=== PATIENT | male | born 1940 | race Caucasian/White ===

== ENCOUNTER 2016-10-22 07:16 | Outpatient (CLI) | payer MEDICARE ==
[~2016-10-22] VITALS: Ht 180.3 cm; Wt 106.8 kg
--- NOTE | ~2016-10-22 | HEMODYNAMI ---
PATIENT:OCTAVIO LOBATO MEDICAL RECORD: [id number] : 42 LOCATION:[facility] ADMISSION DATE: 10/22/16 Generatedon:10/22/201611:46 Patient name: OCTAVIO LOBATO Patient #: [id number] SSN: : 1940 Date of study: 10/22/2016 Page: Of Hemodynamic Procedure Report Patient Data Patient Demographics Procedure consent was obtained First Name: OCTAVIO Gender: Male Last Name: LUIS ALFREDO : 1940 [facility] Initial: CANDIDA Age: 76 year(s) Patient #: [id number] Race: Additional ID: [id number] Contact details [address]: [address] [place] [address] State: [place] City: [place] Zip code: [address] Past Medical History History of disease Date Diagnosis Comments CAD Allergies: No known allergies Admission Admission Data Admission Date: 10/22/2016 Admission Time: 7:16 Height (in.): 71 BSA: 2.26 (m2) Height (cm.): 180.34 BMI: 32.78 (kg/m2) Weight (lbs.): 235 Weight (kg.): 106.59 Lab Results Lab Result Date: 10/22/2016 Lab Result Time: 0:00 Biochemistry Name Units Result Min Max BUN mg/dl 51 --(----)-* 7 18 Creatinine mg/dl 3.4 --(----)-* 0.6 1.3 CBC Name Units Result Min Max Hemoglobin g/dl 14.6 --(-*--)-- 13.5 17.5 Procedure Procedure Types Cath Procedure Diagnostic Procedure [facility] w/Coronaries Bravo Insertion PCI Procedure Coronary Stent Initial Miscellaneous Procedures Moderate Sedation up to 15 minutes Procedure Description Procedure Date Procedure Date: 10/22/2016 Procedure Start Time: 11:27 Procedure End Time: 11:45 Procedure Staff Name Function Feng Iniguez MD Performing Physician Brigette Ohara RN Nurse Sorin Hoyt RT Monitor Bryan Anne RT Scrub Forest Villavicencio RN Agriculture Intern Procedure Data Cath Procedure Fluoroscopy Diagnostic fluoroscopy Total fluoroscopy Time: 1.8 time: 1.8 min min Diagnostic fluoroscopy Total fluoroscopy dose: 586 dose: 586 mGy mGy Contrast Material Contrast Material Type Amount (ml) Isovue 300 36 Entry Location Entry Primary Successful Side Size Upsize Upsize Entry Closure Succes sful Closure Location (Fr) 1 (Fr) 2 (Fr) Remarks Device Remarks Femoral Right 6 Fr Exoseal artery Short Diagnostic catheters Device Type Used For End Catheter Placement Diagnostic Infinity 5Fr LV Angiography Pigtail catheter Procedure Complications No complications Procedure Medications Medication Administration Route Dosage Oxygen NC 2 l/min Heparin Flush Bag added to field 2 bags (1000units/500ml NS) Lidocaine 2% added to field 20 Plavix P.O. 75 mg Versed I.V. 1 mg Fentanyl I.V. 50 mcg Versed I.V. 1 mg Fentanyl I.V. 50 mcg Heparin Bolus I.V. 4000 units Fentanyl I.V. 25 mcg Hemodynamics Rest BSA: 2.26 (m2) HGB: 14.6 (g/dl) O2 Consumption: Estimated: 247.07 (ml/min) O2 Co nsumption indexed: Estimated:109.32 (ml/min/m) Heart Rate: 55 (bpm) Snapshots Pre Cath Intra NCS Post Cath Vital Signs Time Heart Resp SPO2 NIBP (mmHg) Rhythm Pain Sedation Rate (ipm) (%) Status Level (bpm) 11:14:03 60 22 98 173/81(140) NSR 0 (11) 10(A) , No pain 11:18:25 65 16 99 161/82(136) NSR 0 (11) 10(A) , No pain 11:22:49 60 16 98 142/78(112) NSR 0 (11) 10(A) , No pain 11:27:09 60 19 96 129/79(109) NSR 0 (11) 10(A) , No pain 11:31:25 62 18 96 144/74(114) NSR 0 (11) 9(A) , No pain 11:35:45 61 16 96 141/83(112) NSR 0 (11) 9(A) , No pain 11:38:17 60 17 96 137/82(100) NSR 0 (11) 9(A) , No pain Medications Time Medication Route Dose Verified Delivered Reason Notes Effectiveness by by 11:08:05 Plavix P.O. 75 mg Feng Brigette for Geetha Ohara RN antiplatelet therapy 11:15:34 Oxygen NC 2 Feng Brigette Per physician l/min Geetha Ohara RN 11:15:42 Heparin Flush added 2 Feng Feng used for Bag to bags Geetha Iniguez MD procedure (1000units/500ml field NS) 11:15:49 Lidocaine 2% added 20ml Feng Feng used for to vial Geetha Iniguez MD procedure field 11:23:45 Versed I.V. 1 mg Feng Brigette for sedation Geetha Ohara RN 11:24:04 Fentanyl I.V. 50 Feng Brigette for sedation mcg Geetha Ohara RN 11:26:03 Versed I.V. 1 mg Feng Brigette for sedation Geetha Ohara RN 11:26:09 Fentanyl I.V. 50 Feng Brigette for sedation mcg Geetha Ohara RN 11:29:29 Heparin Bolus I.V. 4000 Feng Brigette for dose units Geetha Ohara RN anticoagulation verified wt dr iniguez 11:29:37 Fentanyl I.V. 25 Feng Brigette for sedation mcg Geetha Ohara RN Procedure Log Time Note 10:50:32 Forest Villavicencio RN sent for patient. Start room use. 11:04:06 Procedure type changed to Cath procedure, Diagnostic procedure, LHC, LHC w/Coronaries, Bravo Insertion, PCI procedure, Coronary Stent Initial, Miscellaneous Procedures, Moderate Sedation up to 15 minutes 11:04:42 Time tracking: Regular hours 11:04:46 Plan of Care:Hemodynamics will remain stable., Cardiac rhythm will remain stable., Comfort level will be maintained., Respiratory function will remain adequate., Patient/ family verbilizes understanding of procedure., Procedure tolerated without complication., Recovers from procedure without complications.. 11:07:04 Patient received from Pre/Post Procedure Room to CCL 2 Alert and oriented. Tansferred to table in Supine position. 11:07:09 Warm blankets applied, and nella hugger turned on for patient comfort. 11:07:09 Correct patient and procedure confirmed by team. 11:07:10 Signed procedure consent form obtained from patient. 11:07:11 ECG and BP/O2 sat monitors applied to patient. 11:08:05 Plavix 75 mg P.O. was administered by Brigette Ohara RN; for antiplatelet therapy; 11:12:37 Vital chart was started 11:15:34 Oxygen 2 l/min NC was administered by Brigette Ohara RN; Per physician; 11:15:42 Heparin Flush Bag (1000units/500ml NS) 2 bags added to field was administered by Feng Iniguez MD; used for procedure; 11:15:49 Lidocaine 2% 20ml vial added to field was administered by Feng Iniguez MD; used for procedure; 11:16:17 Baseline sample Acquired. 11:16:23 Rhythm: sinus rhythm 11:16:24 Full Disclosure recording started 11:18:01 H&P Date Dictated: 10/09/2016 Within 30 days and on chart., H&P Addendum completed by physician on day of procedure. (MUST COMPLETE FOR ALL OUTPATIENTS). 11:18:04 Pre-procedure instructions explained to patient. 11:18:04 Pre-op teaching completed and patient verbalized understanding. 11:18:08 Family in waiting room. 11:18:09 Patient NPO since Midnight. 11:18:16 Patient allergic to No known allergies 11:18:21 Is the patient allergic to Iodine/contrast media? No. 11:19:31 Is patient on blood thinner?Yes 11:19:34 ACC The patient was administered the following blood thiners within the last 24 hours: ACCPlavix 11:19:43 Patient diabetic? Yes. 11:19:45 If diabetic: On Metformin? No 11:19:46 ----Pre-sedation anethsthesia assessment.---- 11:19:49 Previous problem with sedation/anesthesia? No ? 11:19:51 Snore? Yes 11:19:52 Sleep apnea? No 11:19:54 Deviated septum? No 11:19:55 Opens mouth fully? Yes 11:19:56 Sticks out tongue? Yes 11:19:58 Airway obstruction? No ? 11:20:01 Dentures? No ? 11:20:06 Pre procedure: right dorsailis pedis pulse 1+ Palpable, but thready & weak; easily obliterated 11:20:10 Patient pain scale 0/10 ?. 11:20:16 IV patent on arrival in left hand with 0.9% NaCl at 10ml/hr. 11:20:49 Lab Result : BUN 51 mg/dl 11:20:49 Lab Result : Hemoglobin 14.6 g/dl 11:20:49 Lab Result : Creatinine 3.4 mg/dl 11:20:52 Lab results completed and on chart. 11:20:55 Right groin area was prepped with chlora-prep and draped in sterile fashion 11:20:56 Alarms reviewed by R. N. 11:20:56 Sharps counted by scrub and verified by R.N. 11:23:23 --------ALL STOP TIME OUT------ 11:23:24 Final Timeout: patient, procedure, and site verified with staff and physician. All members of the team are in agreement. 11:23:25 Right groin site verified by team. 11:23:28 Physical assessment completed. ASA score P 2 - A patient with mild systemic disease as per Feng Iniguez MD. 11:23:32 Sedation plan: IV Moderate Sedation Versed, Fentanyl 11:23:45 Versed 1 mg I.V. was administered by Brigette Ohara RN; for sedation; 11:24:04 Fentanyl 50 mcg I.V. was administered by Brigette Ohara RN; for sedation; 11:26:03 Versed 1 mg I.V. was administered by Brigette Ohara RN; for sedation; 11:26:09 Fentanyl 50 mcg I.V. was administered by Brigette Ohara RN; for sedation; 11:26:29 Use device set Femoral Dx 11:26:30 Acist Syringe opened to sterile field. 11:26:30 Bag Decanter opened to sterile field. 11:26:32 Medline Cath Pack opened to sterile field. 11:26:33 St Curt 260cm J .035 wire opened to sterile field. 11:26:35 Acist Hand Control opened to sterile field. 11:26:35 Acist Manifold opened to sterile field. 11:26:36 Tegaderm 4 x 4 opened to sterile field. 11:26:56 Medtronic Launcher 6Fr EBU 4.0 guide catheter opened to sterile field. 11:27:02 Procedure started. 11:27:08 Local anesthetic to right femoral artery with Lidocaine 2% by Feng Iniguez MD.INITIAL ACCESS ONLY 11:27:19 A 6 Fr Short sheath was inserted into the Right Femoral artery 11::37 A Diagnostic Infinity 5Fr Pigtail catheter was advanced over the wire and used for LV Angiography. 11:27:40 LV angiography performed. 11:27:45 EF : 40 % 11::49 Injector settings: Ml/sec: 3, Volume: 6, 11:27:50 Catheter removed. 11:28:23 6 Fr EBU 4 guide catheter was inserted over the wire 11:28:29 LCA angiography performed. 11:28:43 [place] [employer] Choice PT Extra Support J 300cm .014 gu opened to sterile field. 11:28:44 Merit BasixCompak Inflation Kit opened to sterile field. 11:28:58 Terumo 6Fr Clarion Sheath opened to sterile field. 11:29:29 Heparin Bolus 4000 units I.V. was administered by Brigette Ohara RN; for anticoagulation; dose verified wtih dr iniguez 11::37 Fentanyl 25 mcg I.V. was administered by Brigette Ohara RN; for sedation; 11:29:43 ACC PCI Site: [facility] has 80% stenosis. 11:29:45 ACC Pre-intervention [place] Flow is 3. 11:29:49 CPTES wire advanced. 11:31:44 Patient Weight : 106.59 kg 11:31:48 Patient Height : 180.34 cm 11:32:17 Inflation number: 1 A Mozec Rx 2.5 x 14 balloon was prepped and advanced across the Mid CX, then inflated to 13 WENDY for 0:10 (min:sec). 11:32:27 Balloon removed over the wire. 11:33:13 Cordis 6Fr Exoseal opened to sterile field. 11:33:28 Terumo 5Fr Clarion Sheath opened to sterile field. 11:34:49 Inflation Number: 2 A [place] OTW 2.5 x 12 stent was prepped and advanced across the Mid CX. The stent was deployed at 13 WENDY for 0:14 (min:sec). 11:34:52 Stent catheter was removed intact over wire. 11:34:53 Wire removed. 11:34:53 Guide catheter removed. 11:35:20 Sheath removed intact; hemostasis achieved with Exoseal to the Right Femoral artery. 11:35:48 16FR Bravo w/Drainage Bag opened to sterile field. 11:36:45 BRAVO INSERTION UNDER CONFIGURATION CONSULTANT SECONDARY TO URINARY RETENTION AND AN ENLARGED PROSTATE bravo placed eaysil, no complications. pt urine in clear yellow drainnig freely into collection bag. secrued with bravo leg securing device. 11:36:51 Procedure ended.(Physican Out) 11:37:00 Fluoroscopy time 01.80 minutes. 11:37:05 Fluoroscopy dose: 586 mGy 11:37:05 Flurop Dose total: 586 11:37:15 Contrast amount:Isovue 300 36ml. 11:37:17 Sharps counted by scrub and verified by R.N. 11:37:18 Insertion/operative site no bleeding no hematoma. 11:37:22 Post-op/insertion site Right Femoral artery dressed using a 4 x 4 and Tegaderm. 11:37:32 Post right femoral artery:stable 11:37:33 Post Procedure Pulses reassessed and unchanged 11:37:35 Post procedure: right dorsailis pedis pulse 1+ Palpable, but thready & weak; easily obliterated. 11:37:38 Post procedure rhythm: sinus rhythm 11:37:40 Post procedure instruction explained to patient.Patient verbalizes understanding. 11:39:02 Procedure and supply charges have been captured, reviewed, submitted and are correct. 11:39:55 Procedure Complication : No complications 11:42:09 Vital chart was stopped 11:45:26 See physician's report for complete and final results. 11:45:30 Report given to Pre/Post Procedure Room. 11:45:32 Patient transfered to Pre/Post Procedure Room with Stretcher. 11:45:36 Procedure ended. 11:45:36 Full Disclosure recording stopped 11:45:40 End room use (Document Last) Intervention Summary Intervention Notes Time ActionType Lesion and Equipment Action# Pressure Duration Attributes Used 11:32:17 Inflate Mid CX Mozec Rx 1 13 00:10 balloon 2.5 x 14 balloon 11:34:49 Place stent Mid CX [place] OTW 2 13 00:14 2.5 x 12 stent Device Usage Item Name Manufacture Quantity Catalog Number Hospital Part Current Minim al Lot# / Charge Number Stock Stock Serial# Code Acist Acist 1 14369 004697 680890 122132 20 Syringe Medical Systems Inc Bag Microtek 1 2002S 394018 31803 508671 5 Decanter Medical Inc. Medline Cardinal 1 [id number] 085332 30758 156[address] Curt 1 600236 783547 719775 157306 30 260cm J .035 wire Acist Hand Acist 1 25990 361816 277732 218727 5 Control Medical Systems Inc Acist Acist 1 35425 566369 147440 019324 5 Manifold Medical Systems Inc Tegaderm 4 3M 1 1626W 585953 796646 113409 5 x 4 Medtronic Medtronic 1 [id number] 557771 33776 376995 1 Launcher 6Fr EBU 4.0 guide catheter Diagnostic Cardinal 1 [id number] 527166 608477 166317 5 ITC Global Health 5Fr Pigtail catheter [place] Sci [place] 1 [id number] 701214 583650 978274 5 Choice PT Scientific Extra Support J 300cm .014 gu Merit Merit 1 CV8867 778354 833649 544040 15 BasixCompak Medical Inflation Kit Terumo 6Fr Terumo 1 IWM845 884078 004842 759716 40 Clarion Sheath Mozec Rx Cardinal 1 [id number] 598121 58334 788873 5 UMOA36 2.5 x 14 Health balloon Cordis 6Fr Cardinal 1 EX600 373357 499555 509882 10 Exoseal Health Terumo 5Fr Terumo 1 NPQ846 210783 366000 515401 40 Clarion Sheath [place] OTW Medtronic 1 [id number] 646294 72366 415781 5 [id number] 2.5 x 12 stent 16FR Bravo Bard 1 [id number] 898602 591532 755770 5 w/Drainage Bag Signature Audit [place] Stage Time Signature Unsigned Intra-Procedure 10/22/2016 Sorin Hoyt 11:46:01 AM RT(R) Signatures Monitor : Sorin Hoyt RT Signature : Date : Time : [facility] [address] [place] [address]
[~2016-10-22 07:16] MED LIST: BAYER CHEWABLE81 MG PO; COREG CR40 MG PO; GLIPIZIDE-METFO1 TA5 PO; ISOSORBIDE MONO60 M1 PO; LANTUS SOL100 UNIT/1; LASIX40 MG PO; LOTREL 10/20 CA1 CAP PO; PLAVIX75 MG PO; RANEXA500 MG PO; SYNTHROID100 MCG PO; TRADJENTA5 MG PO; TRICOR145 MG PO; VYTORIN 10-40 M1 TAB PO
[2016-10-22 08:00] LABS: BASOPHILS 0.4 % (0-2); EOSINOPHILS 1.6 % (0-7); HEMATOCRIT 43.4 % (42.0-54.0); HEMOGLOBIN 14.6 g/dL (13.5-17.5); IMMATURE GRANULOCYTES 0.2 % (0-5); LYMPHOCYTES 22.5 % (15-50); MCH 30.8 pg (26.0-34.0); MCHC 33.6 g/dL (31.0-37.0); MCV 91.6 fL (80.0-100.0); MEAN PLATELET VOLUME 11.6 fL (7.4-10.4); MONOCYTES 11.2 % (2-11); NEUTROPHILS 64.1 % (40-80); PLATELET COUNT 141 10x3/uL (130-400); RBC 4.74 10x6/uL (4.20-6.10); RDW 13.5 % (11.5-14.5); WBC 5.5 10x3/uL (4.8-10.8)
[2016-10-22 08:12] VITALS: BP 157/79; Ht 180.3 cm; Wt 106.8 kg
[2016-10-22 08:30] LABS: CALC OSMOLALITY 293 mosm/kg (275-300); CARBON DIOXIDE 22.4 mmol/L (21.0-32.0); CHLORIDE - SERUM 106 mmol/L (98-107); CKMB 2.8 U/L (0.0-3.6); CREATINE KINASE 230 UL (21-232); CREATININE - SERUM 3.4 mg/dL (0.6-1.3); GLUCOSE 120 mg/dL (74-106); POTASSIUM - SERUM 5.3 mmol/L (3.5-5.1); SODIUM 140 mmol/L (136-145); TROPONIN-I < 0.017 ng/mL (0.000-0.060); UREA NITROGEN 51 mg/dL (7-18); eGFR NON AFRICAN AMERICAN 19 mL/min (90-120)
--- NOTE | 2016-10-22 12:02 | NUR ---
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 PT IS DROWSY, AWAKENS TO VERBAL STIMULI. DENIES ANY C/O AT THIS TIME. DRESSING TO RIGHT GROIN IS CDI, NO BLEEDING OR HEMATOMA NOTED. PEDAL PULSES PALPABLE. RR IS EVEN AND UNLABORED ON O2 AT 2 LPM VIA NC. FAMILY AT BEDSIDE, CALL LIGHT IN REACH.
--- NOTE | 2016-10-22 12:05 | NUR ---
RIGHT GROIN CDI, NO HEMATOMA OR BLEEDING NOTED AT SITE, FAMILY AT SIDE.
--- NOTE | 2016-10-22 12:30 | NUR ---
NO CHANGE IN RIGHT GROIN, FAMILY AT SIDE
--- NOTE | 2016-10-22 15:10 | NUR ---
IV D'C WITH CATH TIP INTACT, BRAVO CATH D'C WITH TIP INTACT, WRITTEN AND VERBAL INSTRUCTIONS GIVEN TO PT AND FAMILY.
--- NOTE | 2016-10-24 11:01 | OP ---
PATIENT NAME: OCTAVIO LOBATO MEDICAL RECORD: [id number] :42 LOCATION:[facility] ADMISSION DATE: SURGEON: ORLY GARCIA MD OPERATION DATE: 10/22/16 PROCEDURES: 1. Percutaneous transluminal coronary angioplasty stent left circumflex. 2. Left heart catheterization. 3. Selective coronary angiography. 4. Left ventriculogram. INDICATION: 1. Angina. 2. Coronary artery disease. PROCEDURE IN DETAIL: After informed consent was obtained and after detailed explanation of risks, benefits, as well as alternative therapies, the patient elected to proceed with angiogram and angioplasty. The right femoral area was prepped and draped in a normal sterile fashion. The right femoral artery was cannulated via modified Seldinger technique with placement of 6-Romanian sheath. All catheters exchanged through this sheath. FINDINGS: Left ventriculogram was performed in standard 30 degree HILLIARD view, reveals mild global hypokinesis, ejection fraction 40%. SELECTIVE CORONARY ANGIOGRAPHY: 1. Left main is with no significant angiographic disease. 2. Left anterior descending has previously placed stent in the left anterior descending diagonal that is widely patent. The mid left anterior descending has an 80+% stenosis, however, the distal left anterior descending is grafted via a patent left internal mammary artery. 3. The left circumflex has a previously placed stent in the first obtuse marginal with 80% in-stent restenosis. The graft to this vessel is closed. 4. From previous cardiac catheterization, right coronary artery and right coronary artery graft are closed. PTCA STENT OF THE LEFT CIRCUMFLEX: The stent used in the obtuse marginal was a 2.5 X 12 millimeter Resolute Garth. The result was 0% residual stenosis. OVERALL IMPRESSION: Successful percutaneous transluminal coronary angioplasty stent of the left circumflex going from 80% initial stenosis to 0% residual stenosis. ORLY GARCIA MD at 1101 CC: [id number] DICTATION DATE: 10/22/16 1400 PUBLIC WORKS INSPECTOR: DM 10/22/16 1549 DEP CLI 10/22/[address] [address]
== END 2016-10-22 15:30 | disposition home or self-care (01) ==
LOC: D.CATH 07:16
PROVIDERS: Internal Medicine Interventional Cardiology
DX: I25.119 Atherosclerotic heart disease of native coronary artery with unspecified angina pectoris (principal); T82.855A Stenosis of coronary artery stent, initial encounter; Z01.812 Encounter for preprocedural laboratory examination
CPT/HCPCS: 93459; C9600

== ENCOUNTER 2018-08-23 07:19 | Observation (INO) | payer MEDICARE ==
[~2018-08-23] VITALS: Ht 180.3 cm; Wt 112.7 kg
[2018-08-23] VITALS (18 sets, daily range): BP systolic 135–180; BP diastolic 71–101; Ht 180.3 cm; Wt 112.7 kg
--- NOTE | ~2018-08-23 | OP ---
PATIENT NAME: OCTAVIO LOBATO MEDICAL RECORD: [id number] :42 [facility]ATION:[facility] ADMISSION DATE:08/23/18 SURGEON: DAVID REYNOLDS MD DATE OF OPERATION: 08/23/2018 SURGEON: David Reynolds MD ANESTHESIA: General, Dr. Ny. OPERATION PERFORMED: Insertion of dual chamber pacing system. PREOPERATIVE DIAGNOSES: Sick sinus syndrome, profound bradycardia, second-degree heart block. POSTOPERATIVE DIAGNOSES: Sick sinus syndrome, profound bradycardia, second-degree heart block. INDICATION FOR OPERATION: Profound symptomatic bradycardia. FINDINGS OF THE OPERATION: The pacemaker Medtronic model number A2DR01, serial number [id number]. Atrial lead: Medtronic model number 4574-45, serial number [id number]. Ventricular lead: Medtronic model number 4074-58, serial number [id number]. LEAD ANALYSIS: Atrial lead: Threshold 0.4 volts, cardiac threshold 640 ohms. P-wave 3.9. Ventricular lead: Threshold 1.0, impedance 1240, R-wave 3.1. Measured through the device, the right atrium P-wave 3.1 and right ventricle 8.0. ESTIMATED BLOOD LOSS: Less than 5 cc. DESCRIPTION OF PROCEDURE: After informed consent and adequate preoperative medication evaluation, the patient was brought to the operating room, placed on the table in the supine position. After induction of general endotracheal anesthesia and application of appropriate monitoring devices, the left chest and neck were prepped and draped in sterile field, utilizing Betadine scrub, alcohol, and Betadine solution. A Betadine-impregnated drape was also used, 1% lidocaine was infiltrated in the left subclavicular space. Incision was made. Dissection carried down to the fascia. Hemostasis maintained with electrocautery. A pacemaker pocket was formed. Subclavian vein was cannulated with the introducers, the leads were placed in the heart. The above electrophysiologic study was done. Leads were felt to be in good position. The leads were secured. The leads were then connected to pulse generator and pacemaker placed in the pocket. Pacemaker fired, captured and sensed appropriately. Pocket was irrigated. Instrument count and sponge count were correct times 2. Pocket was closed in layers utilizing 3-0 Vicryl on deep subcutaneous tissue, 5-0 subcuticular Monocryl on the skin. Sterile dressings were applied. The patient tolerated the procedure well and was transferred to the CV ICU in satisfactory condition. TRANSINT:[id number] Voice Confirmation ID: [id number] DOCUMENT ID: [id number] OPERATIVE REPORT [id number] OCTAVIO LOBATO EDWARD MD CC: [id number] DICTATION DATE: 08/23/18 1130 INFECTION CONTROL MANAGER: 08/23/18 1210 [place] [address]
[2018-08-23 07:54] LABS: ANION GAP 9.5 mmol/L (8-16); CALCIUM 9.3 mg/dL (8.5-10.1); CARBON DIOXIDE 27.4 mmol/L (21.0-32.0); CREATININE - SERUM 2.6 mg/dL (0.6-1.3); POTASSIUM - SERUM 4.9 mmol/L (3.5-5.1)
[2018-08-23 07:56] LABS: HEMATOCRIT 43.6 % (42.0-54.0); HEMOGLOBIN 14.9 g/dL (13.5-17.5); MCH 30.7 pg (26.0-34.0); MCHC 34.2 g/dL (31.0-37.0); MCV 89.9 fL (80.0-100.0); MEAN PLATELET VOLUME 11.5 fL (7.4-10.4); RBC 4.85 10x6/uL (4.20-6.10); RDW 13.9 % (11.5-14.5)
[2018-08-23 08:07] LABS: APTT 25.3 SECONDS (22.8-39.4); INR 1.06 (0.85-1.17); PROTIME 13.3 SECONDS (11.6-15.0)
[2018-08-23] MEDS ORDERED: PLAVIX75 MG PO (08:24)
[2018-08-23] MEDS ORDERED: GLUCOTROL 5 MG T5 MG PO (08:25)
[2018-08-23] MEDS ORDERED: ULORIC40 MG PO (08:30)
[2018-08-23] MEDS ORDERED: VITAMIN D3400 UNI1 PO (08:30)
--- NOTE | 2018-08-23 13:53 | NUR ---
1230 PT ADMITTED TO THE CVICU FROM THE RECOVERY ROOM POST OP PERM PACEMAKER INSERTION.. PT IS AWAKE AND ALERT ON ARRIVAL THERE IS A SLING ON HIS LEFT ARM AND A 4X4 AQUACEL DRESSING ON HIS LEFT CHEST WALL PACEMAKER INSSERTION SITE.. PACED RYTHM NOTED ON THE ROLL CHANGER. 1300 CXR DONE ANTIBIOTICS INFUSING. FAMILY AT THE BEDSIDE [address] REYNOLDS TO VERIFY DIET AND MEDS 1345 PTS HOME MEDS ARE LOOSE PILLS IN A BOTTLE GEMA BEEPED.. LUNCH SERVED AND PT IS FEEDING SELF
--- NOTE | 2018-08-23 17:55 | NUR ---
1430 SPOKE WITH GEMA CAPPS FOR DR REYNOLDS.. RE MED ISSUE.. PT CAN HAVE FAMILY BRING MEDS FROM HOME OR HE CAN HAVE PHARMACY DISPENSE AND HE WILL BE RESPONSIBLE FOR THE COST OF THEM... 1500 SPOKE WITH PT AND DAUGHTER RE MEDS THEY WILL DECIDE 1630 PT REFUSES MEDS AT THIS TIME... DINNER SERVED AND PT IS FEEDING SELF 1700 100% DIET CONSUMED..SITTING IN CHAIR AT BEDSIDE..
--- NOTE | 2018-08-23 19:47 | NUR ---
REPORT RECEIVED, SHIFT ASSESSMENT COMPLETED PER FLOW SHEET. AAOX4. PPP. LT FOREARM PIV PATENT, DRESSING C/D/I, NO SIGNS OF INFECTION OR INFILTRATION. DAUGHTER AT BEDSIDE. PATIENT DENIES NEEDS. SEE FLOW SHEET FOR COMPLETE ASSESSMENT. WILL CONTINUE TO MONITOR.
--- NOTE | 2018-08-23 21:00 | NUR ---
DAUGHTER AT BEDSIDE. ASSISSTED TO BR, VOID X1. ASSISSTED TO CHAIR PER HIS REQUEST. DENIES OTHER NEEDS. CALL LIGHT WITHIN REACH.
--- NOTE | 2018-08-23 23:01 | NUR ---
REASSESSMENT COMPLETED PER FLOW SHEET, SEE FOR DETAILS. WATER PROVIDED. WILL CONTINUE TO MONITOR.
[2018-08-24] VITALS (10 sets, daily range): BP systolic 113–152; BP diastolic 67–85
--- NOTE | 2018-08-24 01:00 | NUR ---
RESTING, NO ACUTE DISTRESS NOTED, DENIES NEEDS. WILL CONTINUE TO MONITOR.
--- NOTE | 2018-08-24 03:05 | NUR ---
REASSESSMENT COMPLETED PER FLOW SHEET, SEE FOR DETAILS. NO ACUTE DISTRESS NOTED, DENIES NEEDS. CALL LIGHT WITHIN REACH. WILL CONTINUE TO MONITOR.
--- NOTE | 2018-08-24 05:00 | NUR ---
DENIES NEEDS AT THIS TIME, NO ACUTE DISTRESS NOTED. WILL CONTINUE TO MONITOR.
[2018-08-24 09:01] LABS: ANION GAP 14.1 mmol/L (8-16); CALCIUM 8.5 mg/dL (8.5-10.1); CARBON DIOXIDE 22.3 mmol/L (21.0-32.0); CREATININE - SERUM 2.9 mg/dL (0.6-1.3); POTASSIUM - SERUM 5.4 mmol/L (3.5-5.1)
--- NOTE | 2018-08-24 10:04 | NUR ---
0700 PT RECIEVED ALERT AND ORIENTED ON ROOM AIR HR PACED, DRESSING TO L CHEST PPM SITE, L ARM IN SLING, DENIES ANY NEEDS, SEE SHIFT ASSESSMENT FOR DETAILS 0900 ATE 100% BREAKFAST
[2018-08-24] MEDS ORDERED: HYDROCODON-ACE1 EAC7 PO (10:20)
--- NOTE | 2018-08-24 11:36 | NUR ---
[address] DC TEACHING DONE BY DR ENGLISH NURSE GEMA AND MYSELF, DENIES ALL QUESTIONS, PIV DCD, ASSISTED TO CAR WITH DAUGHTER AT 1120
== END 2018-08-24 11:20 | disposition home or self-care (01) ==
LOC: D.OPS 07:19 → D.CVICU 10:24 → D.OPS 10:51 → D.CVICU 10:52 → OBSVTIME 10:53 → D.CVICU 08-24 11:20
PROVIDERS: Thoracic Surgery (Cardiothoracic Vascular Surgery); ADMIT Internal Medicine Cardiovascular Disease; ATTEND Internal Medicine Cardiovascular Disease
DX: I49.5 Sick sinus syndrome (principal); I44.1 Atrioventricular block, second degree; R00.1 Bradycardia, unspecified; I25.10 Atherosclerotic heart disease of native coronary artery without angina pectoris; I10 Essential (primary) hypertension; E78.5 Hyperlipidemia, unspecified; E03.9 Hypothyroidism, unspecified

== ENCOUNTER → 2018-09-01 10:35 | Outpatient (CLI) | payer MEDICARE ==
[2018-08-23 12:46] VITALS: BMI 34.6
[~2018-09-01 10:35] MED LIST changes: +GLUCOTROL 5 MG T5 MG PO; +HYDROCODON-ACE1 EAC7 PO; +ULORIC40 MG PO; +VITAMIN D3400 UNI1 PO
== END | disposition home or self-care (01) ==
LOC: D.US 10:35
PROVIDERS: ATTEND Internal Medicine Cardiovascular Disease
DX: R22.32 Localized swelling, mass and lump, left upper limb (principal)

== ENCOUNTER → 2019-04-14 09:47 | Outpatient (CLI) | payer MEDICARE ==
[2018-08-23 12:46] VITALS: BMI 34.6
--- NOTE | 2019-04-18 11:13 | ST ---
PATIENT:OCTAVIO LOBATO MEDICAL RECORD: [id number] SEX: M LOCATION:[facility] ORDER #: ADMISSION DATE: 04/14/19 AGE OF PATIENT: 79 REFERRING PHYSICIAN: INTERPRETING PHYSICIAN: ORLY GARCIA MD DATE OF SERVICE: 04/14/2019 NUCLEAR STRESS TEST INDICATION: Angina, coronary artery disease, hypertension, and hyperlipidemia. He was exercised on standard Lexiscan protocol with 33 mCi of sestamibi injected at peak stress, 11 mCi used previously for rest images. FINDINGS: Gated SPECT reveals mildly depressed ejection fraction of 46% with LV dilatation fixed perfusion defect and decrease thickening inferiorly. SPECT imaging Cardiolite was used as myocardial perfusion agent. There is a fixed perfusion defect inferiorly compatible with previous inferior myocardial infarction; however, there is reversible ischemia anteriorly and laterally, this includes basal, mid, apical, anterior segments, apical lateral, mid lateral, basal lateral segments. The degree of reversibility is moderate to severe. The amount of myocardium involved is very large. OVERALL IMPRESSION: This is a high risk abnormal nuclear stress test, fixed perfusion defect inferiorly, reversible ischemia anteriorly and laterally suggestive of hemodynamically significant multivessel coronary artery disease. TRANSINT:[id number] Voice Confirmation ID: [id number] DOCUMENT ID: [id number] ORLY GARCIA MD at 1113 CC: PRISCILA FAIRCHILD MD [id number] DICTATION DATE: 04/15/19 1259 DYEING MACHINE FEEDER: 04/15/19 1940 DEP CLI 04/14/19 [facility] [address] [place] [address]
== END | disposition home or self-care (01) ==
LOC: D.HCCARDIO 09:47
PROVIDERS: ATTEND Internal Medicine Interventional Cardiology
DX: I25.10 Atherosclerotic heart disease of native coronary artery without angina pectoris (principal)

== ENCOUNTER 2019-07-19 07:29 | Outpatient (CLI) | payer MEDICARE ==
[~2019-07-19] VITALS: Ht 180.3 cm; Wt 106.8 kg
--- NOTE | ~2019-07-19 | HEMODYNAMI ---
PATIENT:OCTAVIO LOBATO MEDICAL RECORD: [id number] : 42 LOCATION:[facility] ADMISSION DATE: 07/19/19 Generatedon:07/19/201910:42 Patient name: OCTAVIO LOBATO Patient #: [id number] SSN: [id number] : 1940 Date of study: 07/19/2019 Page: Of Hemodynamic Procedure Report Patient Data Patient Demographics Procedure consent was obtained First Name: OCTAVIO Gender: Male Last Name: LUIS ALFREDO : 1940 [facility] Initial: CANDIDA Age: 79 year(s) Patient #: [id number] Race: SSN: [id number] Additional ID: [id number] Contact details [address]: [address] [place] [address] State: [place] City: [place] Zip code: [address] Past Medical History History of disease Date Diagnosis Comments CAD Allergies: No known allergies Admission Admission Data Admission Date: 07/19/2019 Admission Time: 7:29 Arrival Date: 07/19/2019 Arrival Time: 0:00 Insurance Payor: Medicare [facility] #: [id number] Height (in.): 70.87 BSA: 2.26 (m2) Height (cm.): 180 BMI: 33.02 (kg/m2) Weight (lbs.): 235.9 Weight (kg.): 107 Lab Results Lab Result Date: 07/19/2019 Lab Result Time: 0:00 Biochemistry Name Units Result Min Max BUN mg/dl 44 --(----)-* 7 18 Creatinine mg/dl 2.9 --(----)-* 0.6 1.3 eGFR ml/min 22 *-(----)-- 90 120 NONAFRICAN CBC Name Units Result Min Max Hematocrit % 46.3 --(-*--)-- 42 54 Hemoglobin g/dl 15.1 --(-*--)-- 13.5 17.5 Procedure Procedure Types Cath Procedure Diagnostic Procedure LHC LHC w/Coronaries Sedation Charges Moderate Sedation up to 15 minutes PCI Procedure Coronary Stent Coronary Stent Initial PTCA PTCA Initial Hemochron ACT Test Procedure Description Procedure Date Procedure Date: 07/19/2019 Procedure Start Time: 10:12 Procedure End Time: 10:41 Procedure Staff Name Function Feng Iniguez MD Performing Physician Keyanna Eagle RT Monitor Shantell Victor RN Nurse Criselda Gusman RT Scrub Indication Angina Procedure Data Cath Procedure Fluoroscopy Diagnostic fluoroscopy Total fluoroscopy Time: 6.8 time: 6.8 min min Diagnostic fluoroscopy Total fluoroscopy dose: dose: 1414 mGy 1414 mGy Contrast Material Contrast Material Type Amount (ml) Isovue 300 50 Entry Location Entry Primary Successful Side Size Upsize Upsize Entry Closure Succes sful Closure Location (Fr) 1 (Fr) 2 (Fr) Remarks Device Remarks Femoral Right 5 Fr 6 Fr Exoseal artery Short Estimated blood loss: 10 ml Diagnostic catheters Device Type Used For End Catheter Placement MULTIPACK Pigtail 5 Fr LV Angiography catheter MULTIPACK JL 4.0 5Fr Left Coronary catheter Angiography MULTIPACK 3DRC 5Fr Right Coronary catheter Angiography Procedure Complications No complications Procedure Medications Medication Administration Route Dosage Oxygen etCO2 Nasal cannula 2 l/min Lidocaine 2% added to field 20 Heparin Flush Bag added to field 2 bags (1000units/500ml NS) 0.9% NaCl I.V. 100 ml/hr Versed I.V. 1 mg Fentanyl I.V. 50 mcg Versed I.V. 1 mg Fentanyl I.V. 50 mcg Heparin Bolus I.V. 4000 units Versed I.V. 1 mg Hemodynamics Rest BSA: 2.26 (m2) HGB: 15.1 (g/dl) O2 Consumption: Estimated: 264.04 (ml/min) O2 Co nsumption indexed: Estimated:116.83 (ml/min/m) Heart Rate: 76 (bpm) Snapshots Pre Cath Intra NCS Post Cath Vital Signs Time Heart Resp SPO2 etCO2 NIBP (mmHg) Rhythm Pain Sedation Rate (ipm) (%) (mmHg) Status Level (bpm) 9:59:49 77 11 99 29.1 164/94(141) Paced 0 (11) 10(A) , No pain 10:04:11 75 16 98 31.4 159/90(125) Paced 0 (11) 10(A) , No pain 10:08:27 73 15 97 0 149/91(120) Paced 0 (11) 10(A) , No pain 10:12:45 69 11 97 29.1 151/88(125) Paced 0 (11) 9(A) , No pain 10:17:05 76 14 95 13.4 150/88(133) Paced 0 (11) 9(A) , No pain 10:21:23 71 14 95 18.7 138/89(126) Paced 0 (11) 9(A) , No pain 10:25:41 71 15 95 15.7 137/85(104) Paced 0 (11) 9(A) , No pain 10:29:57 71 14 95 15.7 126/85(105) Paced 0 (11) 10(A) , No pain 10:34:56 73 13 97 33.7 Measuring Paced 0 (11) 10(A) , No pain 10:35:01 73 14 97 33.7 151/98(133) Paced 0 (11) 10(A) , No pain 10:39:19 74 11 96 27.6 155/97(132) Paced 0 (11) 10(A) , No pain Medications Time Medication Route Dose Verified Delivered Reason Notes Effectiveness by by 9:58:35 Oxygen etCO2 2 Feng Buffie used for Nasal l/min Geetha Victor RN procedure cannula 9:58:42 Lidocaine 2% added 20ml Feng Feng for local to vial Geetha Iniguez MD anesthetic field 9:58:49 Heparin Flush added 2 Feng Feng used for Bag to bags Geetha Iniguez MD procedure (1000units/500ml field NS) 9:58:57 0.9% NaCl I.V. 100 Feng Buffie Per physician ml/hr Geetha Victor RN 10:09:48 Versed I.V. 1 mg Feng Buffie for sedation Geetha Victor RN 10:09:55 Fentanyl I.V. 50 Feng Buffie for sedation mcg Geetha Victor RN 10:12:55 Versed I.V. 1 mg Feng Buffie for sedation Geetha Victor RN 10:12:59 Fentanyl I.V. 50 Feng Buffie for sedation mcg Geetha Victor RN 10:17:56 Versed I.V. 1 mg Feng Buffie for sedation Geetha Victor RN 10:20:52 Heparin Bolus I.V. 4000 Feng Buffie for verif ied units Geetha Victor RN anticoagulation with dr iniguez Procedure Log Time Note 9:31:14 Indication : Angina 9:32:14 Lab Result : Hematocrit 46.3 % 9:32:14 Lab Result : eGFR NONAFRICAN 22 ml/min 9:32:14 Lab Result : Hemoglobin 15.1 g/dl 9:32:14 Lab Result : BUN 44 mg/dl 9:32:14 Lab Result : Creatinine 2.9 mg/dl 9:32:40 Informed consent obtained and on chart 9:32:47 Arrival Date: 07/19/2019 12:00:00 AM 9:33:05 Insurance Payor : Medicare 9:33:11 Patient Height : 70.87 inches 9:33:17 Patient Weight : 235.9 lbs 9:37:35 ACC Patient presents with Stable Angina CCS Anginal Class 4--Inability to carry out any physical activity w/o angina. Angina may occur at rest. 9:37:56 Procedure Status Elective Heart Cath (OP). 9:38:20 Patient allergic to No known allergies 9:39:03 Shantell Victor RN sent for patient. Start room use. 9:39:06 Time tracking: Regular hours (M-F 7:00 - 5:00) 9:39:15 Plan of Care:Hemodynamics will remain stable., Cardiac rhythm will remain stable., Comfort level will be maintained., Respiratory function will remain adequate., Patient/ family verbilizes understanding of procedure., Procedure tolerated without complication., Recovers from procedure without complications.. 9:39:35 Lab results completed and on chart. 9:40:12 Stress Test: yes; abnormal INFERIORLY/ANTERIORLY AND LATERALLY 9:42:16 Risk of Mortality: 1.1 9:42:20 Risk of blood transfusion: 1.0 9:42:24 Risk of FRANCY: 4.0 9:44:57 Is patient on blood thinner?Yes 9:45:02 ACC The patient was administered the following blood thiners within the last 24 hours: ACCPlavix 9:49:04 Patient received from Pre/Post Procedure Room to CCL 1 Alert and oriented. Tansferred to table in Supine position. 9:53:03 Son in law, Forest Leary was notified and he will notify family with updates. 9:57:45 Vital chart was started 9:58:35 Oxygen 2 l/min etCO2 Nasal cannula was administered by Shantell Victor RN; used for procedure; Verbal order read back and verified. 9:58:42 Lidocaine 2% 20ml vial added to field was administered by Feng Iniguez MD; for local anesthetic; Verbal order read back and verified. 9:58:49 Heparin Flush Bag (1000units/500ml NS) 2 bags added to field was administered by Feng Iniguez MD; used for procedure; Verbal order read back and verified. 9:58:57 0.9% NaCl 100 ml/hr I.V. was administered by Shantell Victor RN; Per physician; Verbal order read back and verified. 10:00:55 Warm blankets applied, and nella hugger turned on for patient comfort. 10:00:56 Correct patient and procedure confirmed by team. 10:00:57 ECG and BP/O2 sat monitors applied to patient. 10:00:58 Baseline sample Acquired. 10:01:10 Rhythm: paced 10:01:12 Full Disclosure recording started 10:01:14 - 10:01:22 H&P Date Dictated: 07/19/2019 H&P Addendum completed by physician on day of procedure. (MUST COMPLETE FOR ALL OUTPATIENTS), New H&P dictated by physician.. 10:01:25 Pre-procedure instructions explained to patient. 10:01:27 Pre-op teaching completed and patient verbalized understanding. 10:01:30 Family unavailable. 10:01:33 Patient NPO since Midnight. 10:01:39 Is the patient allergic to Iodine/contrast media? No. 10:01:43 Was the patient premedicated? Yes 10:01:47 Patient diabetic? Yes. 10:01:50 If diabetic: On Metformin? No 10:01:52 ----Pre-sedation anethsthesia assessment.---- 10:02:01 Previous problem with sedation/anesthesia? No ? 10:02:11 Snore? Yes 10:02:15 Sleep apnea? No 10:02:18 Deviated septum? No 10:02:20 Opens mouth fully? Yes 10:03:11 Sticks out tongue? Yes 10:03:15 Airway obstruction? No ? 10:03:19 Dentures? No ? 10:03:26 Pre procedure: right dorsailis pedis pulse Doppler 10:03:43 IV patent on arrival in left forearm with 0.9% NaCl at O. 10:03:52 Right groin area was prepped with chlora-prep and draped in sterile fashion 10:03:55 Alarms reviewed by R. N. 10:03:56 Sharps counted by scrub and verified by R.N. 10:04:03 Use device set Femoral Dx 10:04:05 ACIST Syringe (41663) opened to sterile field. 10:04:06 Bag Decanter (2002S) opened to sterile field. 10:04:06 Medline Cath Pack ([id number]) opened to sterile field. 10:04:08 ACIST Hand Control (54803) opened to sterile field. 10:04:09 ACIST Manifold (50054) opened to sterile field. 10:04:10 DIAGNOSTIC Multipack 5Fr catheter set (MB5848) opened to sterile field. 10:04:11 Tegaderm 4 x 4 (1626W) opened to sterile field. 10:04:12 SHEATH 5FR Warren (LUE688) opened to sterile field. 10:04:13 EMERALD Guide Wire (820-416) opened to sterile field. 10:07:37 Physician arrived 10:07:38 --------ALL STOP TIME OUT------ 10:07:44 Final Timeout: patient, procedure, and site verified with staff and physician. All members of the team are in agreement. 10:07:46 Right groin site verified by team. 10:07:52 Fire Safety Assessment: A--An alcohol-based skin anteseptic being used preoperatively., C--Open oxygen or nitrous oxide is being used., D--An ESU, laser, or fiber-optic light is being used. 10:07:58 Physical assessment completed. ASA score P 2 - A patient with mild systemic disease as per Feng Iniguez MD. 10:08:04 4) 15-29 Severdg reduced kidney function. 10:08:09 Maximum allowable contrast dose (3.7 X eGFR X 0.75)22 ml. 10:08:28 Sedation plan: IV Moderate Sedation Medication:Versed, Fentanyl 10:09:48 Versed 1 mg I.V. was administered by Shantell Victor RN; for sedation; Verbal order read back and verified. 10:09:55 Fentanyl 50 mcg I.V. was administered by Shantell Victor RN; for sedation; Verbal order read back and verified. 10:12:00 Procedure started. 10:12:07 Local anesthetic to right femoral artery with Lidocaine 2% by Feng Iniguez MD.INITIAL ACCESS ONLY 10:12:50 A 5 Fr sheath was inserted into the Right Femoral artery 10:12:55 Versed 1 mg I.V. was administered by Shantell Victor RN; for sedation; Verbal order read back and verified. 10:12:59 Fentanyl 50 mcg I.V. was administered by Shantell Victor RN; for sedation; Verbal order read back and verified. 10:13:06 Zero performed for pressure channel P1 10:14:06 A MULTIPACK Pigtail 5 Fr catheter was advanced over the wire and used for LV Angiography. 10:14:18 Injector settings: Ml/sec: 3, Volume: 6, LOW CONTRAST DUE TO GFR. 10:14:25 EF : 40 % 10:14:31 Catheter removed. 10:14:31 LV gram done using HILLIARD 10:14:59 A MULTIPACK JL 4.0 5Fr catheter was advanced over the wire and used for Left Coronary Angiography. 10:15:05 Injector settings: Ml/sec: 3, Volume: 6, 10:15:35 LCA angiography performed. 10:17:14 INFLATOR Merit BasixCompak (TD2355) opened to sterile field. 10:17:15 [place] Verrata Plus pressure wire (12195H) opened to sterile field. 10:17:16 SHEATH 6FR Warren (KNE559) opened to sterile field. 10:17:29 Catheter removed. 10:17:36 A MULTIPACK 3DRC 5Fr catheter was advanced over the wire and used for Right Coronary Angiography. 10:17:56 Versed 1 mg I.V. was administered by Shantell Victor RN; for sedation; Verbal order read back and verified. 10:18:34 RCA angiography performed. 10:18:38 Injector settings: Ml/sec: 3, Volume: 6, 10:18:41 Catheter removed. 10:18:47 Proceeding to intervention. 10:20:01 GUIDE 6FR XBLAD 4.0 catheter ([id number]) opened to sterile field. 10:20:21 Sheath upsized to a 6 Fr Short. 10:20:34 6 Fr XBLAD4 guide catheter was inserted over the wire 10:20:52 Heparin Bolus 4000 units I.V. was administered by Shantell Victor RN; for anticoagulation; verified with dr iniguez Verbal order read back and verified. 10:21:10 FFR/IFR wire advanced. 10:24:14 ACC Pre-intervention [place] Flow is 3. 10:27:48 Pre PCI Site: [place] pLAD has 95% stenosis. 10:27:49 IFR WIRE REMOVED, UNABLE TO CROSS WITH THIS WIRE. 10:28:09 CHOICE PT Extra Support 182cm wire ([id number]) opened to sterile field. 10:28:29 PT [id number] wire advanced. 10:28:33 Wire advanced across lesion. 10:29:56 Place stent Inflation Number: 1 A KASIA OTW 2.5 x 08 stent ([id number]) was prepped and advanced across the ProLAD . The stent was deployed at 21 WENDY for 0:00 (min:sec) . 10:30:10 Pre PCI Site: [place] pCirc has 80% stenosis. 10:30:10 Wire redirected to CIRC.. 10:31:13 Inflation number: 2 The stent balloon was then re-inflated across the Prox CX to 17 WENDY for 0:00 (min:sec) . 10:31:20 Inflation number: 3 The stent balloon was then re-inflated across the Prox CX to 21 WENDY for 0:00 (min:sec) . 10:31:26 Inflation number: 4 The stent balloon was then re-inflated across the Prox CX to 21 WENDY for 0:00 (min:sec) . 10:32:50 Stent catheter was removed intact over wire. 10:32:52 Wire removed. 10:32:53 Guide catheter removed. 10:32:55 EXOSEAL 6Fr (EX600) opened to sterile field. 10:33:12 Sheath removed intact; hemostasis achieved with Exoseal to the Right Femoral artery. 10:33:18 Procedure ended.(Physican Out) 10:34:21 ACT drawn and resulted at 191 seconds. (normal therapeutic range 180-24 0 seconds). 10:35:37 Post PCI Site: [place] pLAD AND CIRC has 0% stenosis. 10:36:11 ACC Post-intervention [place] Flow is 3. 10:37:29 Contrast amount:Isovue 300 50ml. 10:37:39 Fluoroscopy time 06.80 minutes. 10:37:46 Fluoroscopy dose: 1414 mGy 10:37:46 Flurop Dose total: 1414 10:37:54 Dose Area Product 24551 mGy/cm. 10:37:59 Maximum allowable dose exceeded? No. 10:38:00 Sharps counted by scrub and verified by R.N. 10:38:03 Insertion/operative site no bleeding no hematoma. 10:38:08 Post-op/insertion site Right Femoral artery dressed using a 4 x 4 and Tegaderm. 10:38:13 Post right femoral artery:stable 10:38:19 Post-procedure physical assessment completed. ASA score P 2 - A patient with mild systemic disease as per Feng Iniguez MD. 10:38:24 Post procedure rhythm: unchanged. 10:38:27 Estimated blood loss: 10 ml 10:38:29 Post procedure instruction explained to patient.Patient verbalizes understanding. 10:38:31 Patient needs reinforcement of post procedure teaching. 10:39:21 Procedure type changed to Cath procedure, Diagnostic procedure, [facility], C w/Coronaries, Sedation Charges, Moderate Sedation up to 15 minutes, PCI procedure, Coronary Stent, Coronary Stent Initial, PTCA, PTCA Initial, Hemochron ACT Test 10:40:41 Procedure and supply charges have been captured, reviewed, submitted an d are correct. 10:40:49 Procedure Complication : No complications 10:40:52 Vital chart was stopped 10:40:56 [facility] Findings: MVD- PCI performed (see procedure note) 10:41:00 Operative report dictated upon procedure completion. 10:41:01 See physician's report for complete and final results. 10:41:03 Report given to Pre/Post Procedure Room. 10:41:08 Patient transfered to Pre/Post Procedure Room with Stretcher. 10:41:11 Procedure ended. 10:41:11 Full Disclosure recording stopped 10:41:20 ACC-PCI Only Patient was given prescriptions, or instructed by Feng Iniguez MD to start/continue the following medications upon discharge: Plavix 10:41:22 End room use (Document Last) Intervention Summary Intervention Notes Time ActionType Lesion and Equipment Action# Pressure Duration Attributes Used 10:29:56 Place stent Prox CX KASIA OTW 2.5 1 21 00:00 x 08 stent ([id number]) 10:31:13 Reinflate Prox CX KASIA OTW 2.5 2 17 00:00 stent x 08 stent balloon ([id number]) 10:31:20 Reinflate Prox CX KSAIA OTW 2.5 3 21 00:00 stent x 08 stent balloon ([id number]) 10:31:26 Reinflate Prox CX KASIA OTW 2.5 4 21 00:00 stent x 08 stent balloon ([id number]) Device Usage Item Name Manufacture Quantity Catalog Number Hospital Part Current Minimal Lot# / Charge Number Stock Stock Serial# Code ACIST Syringe Acist 1 52985 737630 512074 383871 20 (76106) Medical Systems Inc Bag Decanter Microtek 1 2002S 209290 88048 844779 5 (2001S) Medical Inc. Medline Cath Medline 1 [id number] 281305 74260 332392 5 Pack ([id number]) ACIST Hand Acist 1 48807 022143 594990 185451 5 Control Medical (93508) Systems Inc ACIST Acist 1 17906 180187 175302 512462 5 Manifold Medical (11789) Systems Inc DIAGNOSTIC Cardinal 1 VK6258 024817 01518 493900 30 Multipack 5Fr Health catheter set (QH1788) Tegaderm 4 x 3M 1 1626W 492827 938514 189211 5 4 (1626W) SHEATH 5FR Terumo 1 YJR179 166677 661259 079722 5 Warren (JPJ708) EMERALD Guide Cardinal 1 502-455 944285 768731 389342 5 Wire Health (502-455) MULTIPACK Cardinal 1 414352 5 Pigtail 5 Fr Health catheter MULTIPACK JL Cardinal 1 640331 5 4.0 5Fr Health catheter INFLATOR Merit 1 AA8674 993221 038014 007935 15 [facility] BasixCompak (YJ8176) [place] 1 46290E 274944 273208015 957623 5 Verrata Plus pressure wire (03466S) SHEATH 6FR Terumo 1 XCS490 292866 488784 623134 40 Warren (WJA273) MULTIPACK Cardinal 1 699128 5 3DRC 5Fr Health catheter GUIDE 6FR Cardinal 1 [id number] 588720 701477 415523 3 XBLAD 4.0 Health catheter (07964012) CHOICE PT [place] 1 [id number] 593000 729639 344878 5 Extra Support Scientific 182cm wire (4024440P3) KASIA OTW 2.5 Medtronic 1 [id number] 198479 25031 545757 5 x 08 stent ([id number]) EXOSEAL 6Fr Cardinal 1 EX600 029705 817413 401338 10 (EX600) Health Signature Audit [place] Stage Time Signature Unsigned Intra-Procedure 07/19/2019 Keyanna 10:41:52 AM [place] RT(R) (CV) Intra-Procedure 07/19/2019 Shantell Victor RN 10:42:20 AM Intra-Procedure 07/19/2019 Feng Iniguez 10:42:[address] [facility] [address] [place] [address]
--- NOTE | ~2019-07-19 | HP ---
PATIENT: OCTAVIO LOBATO MEDICAL RECORD: [id number] ACCOUNT: [id number] LOCATION:[facility] : 42 ADMISSION DATE: 07/19/19 PCP: PRISCILA FAIRCHILD MD HISTORY AND PHYSICAL EXAMINATION ADMITTING DIAGNOSES: 1. Angina. 2. Coronary artery disease. 3. Previous percutaneous transluminal coronary angioplasty stent. 4. Bypass surgery. 5. Hypertension. 6. Hyperlipidemia. 7. Abnormal nuclear stress test. HISTORY OF PRESENT ILLNESS: This is a gentleman with a past history of coronary artery disease, previous multivessel PTCA stent, who presents with anginal symptomatology, risk stratification with nuclear stress test is abnormal. He is now brought for cardiac catheterization. PHYSICAL EXAMINATION: CONSTITUTIONAL/GENERAL APPEARANCE: Well nourished, well developed, appears stated age. EYES: Lids and conjunctivae noninjected. No discharge. No pallor. ENT: Lips within normal limit. No cyanosis. No pallor. NECK: Carotid arteries, bilateral normal upstroke. No bruits. No thrills. No jugular venous pressure or distention. CERVICAL LYMPH NODES: Nontender. Nonenlarged. THYROID: Not enlarged. No nodules. CARDIOVASCULAR: Precordial exam, nondisplaced. No heaves or pericardial thrills. Rate and rhythm, regular. Heart sounds, normal S1, normal S2. No S3, no gallop, no rub. Systolic murmur, not heard. Diastolic murmur, not heard. RESPIRATORY: Respiratory effort, unlabored. Normal curvature. No thoracic deformity. No chest wall tenderness. Percussion, resonant. Auscultation, clear. No wheezes, no rales, no rhonchi. ABDOMEN: Soft, nondistended, nontender. No abdominal pain, no vomiting and normal appetite. MUSCULOSKELETAL: No joint tenderness, normal gait, normal tone. SKIN: Warm and dry. OVERALL IMPRESSION: Anginal symptomatology with abnormal nuclear stress test, most likely he has hemodynamically significant recurrent coronary artery disease. We will proceed with coronary angiography. Further care depends upon findings of the angiography. TRANSINT:[id number] Voice Confirmation ID: [id number] DOCUMENT ID: [id number] HISTORY AND PHYSICAL [id number] OCTAVIO LOBATO ORLY GARCIA MD CC: [id number] DICTATION DATE: 07/19/19 1009 AUTOMATION DEVELOPER: 07/19/19 1017 [facility] [address] [facility] [place] [address]
--- NOTE | ~2019-07-19 | OP ---
PATIENT NAME: OCTAVIO LOBATO MEDICAL RECORD: [id number] :42 LOCATION:D.CAT ADMISSION DATE: SURGEON: ORLY GARCIA MD DATE OF OPERATION: 07/19/2019 DATE OF SERVICE: 07/19/2019 PROCEDURES: 1. PTCA stent LAD diagonal. 2. PTCA left circumflex. 3. Left heart catheterization. 4. Selective coronary angiography. 5. HU angiography. 6. Vein graft angiography. 7. Left ventriculogram. INDICATION: Angina and coronary artery disease. PROCEDURE IN DETAIL: After informed consent was obtained and after a detailed description of risks, benefits as well as alternative therapies, the patient elected to proceed with angiogram and angioplasty. The right femoral area was prepped and draped in normal sterile fashion. Right femoral artery was cannulated via modified Seldinger technique with placement of 6-Bengali sheath. All catheters exchanged through this sheath. FINDINGS: Left ventriculogram was performed in standard 30-degree HILLIARD view reveals mildly depressed ejection fraction of 40%. SELECTIVE CORONARY ANGIOGRAPHY: 1. Left main is with no significant angiographic disease. 2. Left anterior descending has a stent in the LAD diagonal with 95% in-stent restenosis. The diagonal is non-grafted. After this, the LAD has moderate irregularities. The HU can be seen filling the distal LAD. The HU is patent. 3. Left circumflex has a previously placed stent proximally. There is 80% in-stent restenosis. We attempted IFR on this; however, the IFR wire would not traverse this due to the angulation. 4. Right coronary is totally occluded. 5. All vein grafts are totally occluded. PTCA STENT OF THE LAD DIAGONAL: The stent used was a 2.5 x 8 mm Agrth taken to 21 atmospheres. Result was 0% residual stenosis. PTCA OF THE LEFT CIRCUMFLEX: The stent balloon was used in the left circumflex, inflations were made up to 21 atmospheres. Result was 0% residual stenosis. OVERALL IMPRESSION: Successful percutaneous transluminal coronary angioplasty stent of the left anterior descending diagonal and percutaneous transluminal coronary angioplasty of the left circumflex, both going from 80% to 90% initial stenosis to 0% residual. TRANSINT:[id number] Voice Confirmation ID: [id number] DOCUMENT ID: [id number] OPERATIVE REPORT [id number] OCTAVIO LOBATO ORLY GARCIA MD CC: [id number] DICTATION DATE: 07/19/19 1041 CHANNEL EXECUTIVE: 07/19/19 1054 REG [facility] [address] [place] [id number]
[2019-07-19] MEDS ORDERED: FUROSEMIDE40 MG PO (08:04)
[2019-07-19 08:17] VITALS: BP 162/89; Ht 180.3 cm; Wt 106.8 kg
[2019-07-19 08:20] LABS: BASOPHILS 0.4 % (0-2); EOSINOPHILS 2.9 % (0-7); HEMATOCRIT 46.3 % (42.0-54.0); HEMOGLOBIN 15.1 g/dL (13.5-17.5); IMMATURE GRANULOCYTES 0.6 % (0-5); LYMPHOCYTES 27.1 % (15-50); MCH 30.1 pg (26.0-34.0); MCHC 32.6 g/dL (31.0-37.0); MCV 92.2 fL (80.0-100.0); MEAN PLATELET VOLUME 10.5 fL (7.4-10.4); MONOCYTES 9.7 % (2-11); NEUTROPHILS 59.3 % (40-80); PLATELET COUNT 166 10x3/uL (130-400); RBC 5.02 10x6/uL (4.20-6.10); RDW 13.3 % (11.5-14.5); WBC 4.9 10x3/uL (4.8-10.8)
[2019-07-19 08:34] LABS: ANION GAP 15.1 mmol/L (8-16); CALCIUM 9.3 mg/dL (8.5-10.1); CARBON DIOXIDE 22.9 mmol/L (21.0-32.0); CHOL - HDL RATIO 4.2 ratio (2.3-4.9); CREATININE - SERUM 2.9 mg/dL (0.6-1.3); LDL-HDL RATIO 2.1 ratio (1.5-3.5)
--- NOTE | 2019-07-19 10:50 | NUR ---
PT ARRIVED BY STRETCHER. PLACED ON MONITORS. ASSESSMENT COMPLETED. VSS.
--- NOTE | 2019-07-19 11:05 | NUR ---
RIGHT GROIN DRESSING C/D/I. NO S/S OF HEMATOMA NOTED. CALL LIGHT WITHIN REACH. VSS AT THIS TIME. PT RESTING COMFORTABLY.
--- NOTE | 2019-07-19 11:35 | NUR ---
RIGHT GROIN DRESSING C/D/I. NO S/S OF HEMATOMA NOTED. CALL LIGHT WITHIN REACH. VSS AT THIS TIME. PT RESTING COMFORTABLY.
--- NOTE | 2019-07-19 12:05 | NUR ---
PT RESTING COMFORTABLY. VSS. RIGHT GROIN DRESSING C/D/I. NO S/S OF HEMAOTMA NOTED. CALL LIGHT WITHIN REACH.
--- NOTE | 2019-07-19 12:54 | NUR ---
PT RESTING COMFORTABLY. VSS. RIGHT GROIN DRESSING C/D/I. NO S/S OF HEMATOMA NOTED. CALL LIGHT WITHIN REACH. NO NEEDS AT THIS TIME. CALLED AND UPDATED PT'S DAUGHTER OF PLAN OF CARE AND DISCHARGE TIME.
--- NOTE | 2019-07-19 13:30 | NUR ---
RIGHT GROIN DRESSING C/D/I. NO S/S OF HEMATOMA NOTED. CALL LIGHT WITHIN REACH. VSS. HEAD OF BED INC TO 30 DEGREES. TOLERATED WELL. SET UP WITH SANDWICH TRAY AND DRINK. DENIES NAUSEA/PAIN AT THIS TIME.
--- NOTE | 2019-07-19 13:55 | NUR ---
RIGHT GROIN DRESSING C/D/I. NO S/S OF HEMATOMA NOTED. CALL LIGHT WITHIN REACH. VSS. PIV D/C'D WITH CATH TIP INTACT. TOLERATED WELL. PT INSTRUCTED TO GET UP AND DRESSED AT THIS TIME. NO ASSISTANCE NEEDED.
--- NOTE | 2019-07-19 14:00 | NUR ---
PT AMBULATED TO RESTROOM. VOIDED WITHOUT DIFFICULTY. STEADY GAIT NOTED.
--- NOTE | 2019-07-19 14:01 | NUR ---
DISCUSSED DISCHARGE INSTRUCTIONS WITH PT. HE VOICED UNDERSTANDING.
--- NOTE | 2019-07-19 14:15 | NUR ---
RIGHT GROIN DRESSING C/D/I. NO S/S OF HEMATOMA NOTED. PT TAKEN DOWN TO VEHICLE BY WHEELCHAIR. NO S/S OF DISTRESS NOTED. ALL BELONGINGS AND PAPERWORK IN HAND. DISCUSSED DISCHARGE INSTRUCTIONS WITH PT'S DAUGHTER AT THIS TIME. SHE VOICED UNDERSTANDING.
== END 2019-07-19 14:15 | disposition home or self-care (01) ==
LOC: D.CATH 07:29
PROVIDERS: ATTEND Internal Medicine Interventional Cardiology
DX: I25.119 Atherosclerotic heart disease of native coronary artery with unspecified angina pectoris (principal); I10 Essential (primary) hypertension; E78.5 Hyperlipidemia, unspecified; R94.30 Abnormal result of cardiovascular function study, unspecified; E11.9 Type 2 diabetes mellitus without complications; Z79.84 Long term (current) use of oral hypoglycemic drugs; R06.09 Other forms of dyspnea
CPT/HCPCS: 93459; 92920; C9600